=== PATIENT | male | born 1975 | race African-American/Black ===

== ENCOUNTER 2020-12-26 18:42 | Emergency (ER) | payer MEDICAID ==
[~2020-12-26] VITALS: Ht 167.6 cm; Wt 84.4 kg
[~2020-12-26 18:42] MED LIST: ATIV1TAB7 PO; FOLI1TAB11 PO; HYDR-2541 PO; HYDR-3363 PO; LISI20TA33 PO; VITA100T60 PO
[2020-12-26] MEDS ORDERED: LANTINJ4 SC ×2 (18:50→21:31)
[2020-12-26] MEDS ORDERED: INSURSDRX SC (18:50)
[2020-12-26 20:53] LABS: HEMATOCRIT 37.3 % (42.0-52.0); HEMOGLOBIN 11.8 g/dl (13.5-17.5); MEAN CORPUSCULAR HEMOGLOBIN 25.9 pg (27.0-33.0); MEAN CORPUSCULAR HGB CONC 31.6 g/dl (32.0-36.5); PLATELET COUNT, AUTOMATED 207 10^3/uL (150-450); RED BLOOD COUNT 4.55 10^6/uL (4.30-6.10); WHITE BLOOD COUNT 11.8 10^3/uL (4.0-10.0)
[2020-12-26 21:15] LABS: BASOPHILS 1 % (0-1); LYMPHOCYTES 33 % (16-44); MONOCYTES 10 % (0-5); NEUTROPHILS 56 % (28-66); PLATELET ESTIMATE NORMAL (NORMAL)
[2020-12-26 21:18] LABS: BLOOD UREA NITROGEN 11 MG/DL (7-18); CARBON DIOXIDE LEVEL 27 MEQ/L (21-32); CHLORIDE LEVEL 112 MEQ/L (98-107); CREATININE FOR GFR 1.12 MG/DL (0.70-1.30); GLOMERULAR FILTRATION RATE > 60.0 (>60); GLUCOSE, FASTING 235 MG/DL (70-100); POTASSIUM SERUM 4.4 MEQ/L (3.5-5.1); SODIUM LEVEL 144 MEQ/L (136-145)
[2020-12-26] MEDS ORDERED: lisinopriL 40 MG TAB PO ONE (21:25)
[2020-12-26] MEDS ORDERED: metFORMIN (GLUCOPHAGE) 500MG TAB PO ONE (21:25)
[2020-12-26] MEDS ORDERED: LEVEMIR (INSULIN DETEMIR) 1 UNITS/0.01ML SC ONE (21:25)
[2020-12-26] MEDS ORDERED: METF500T13 PO ×2 (21:27→21:32)
[2020-12-26] MEDS ORDERED: ZOLO100T PO (21:27)
[2020-12-26] MEDS ORDERED: LISI40TA4 PO ×2 (21:27→21:30)
[2020-12-26] MEDS ORDERED: REST15CA PO (21:27)
[2020-12-26] MEDS ORDERED: AMLO10TA PO (21:30)
[2020-12-26 21:45] VITALS: BP 157/94
[2020-12-26 21:51] VITALS: BP 157/94
[2020-12-30] MEDS ORDERED: glucometer (10:27)
[2020-12-30] MEDS ORDERED: test strip (10:27)
[2020-12-30] MEDS ORDERED: ALCO1MED31 TP (10:29)
[2020-12-30] MEDS ORDERED: lancets (10:29)
[2020-12-30] MEDS ORDERED: [UNRECOGNIZED DRUG - SUPPLY] (10:36)
== END 2020-12-26 21:58 | disposition home or self-care (01) ==
LOC: M ED 18:42
DX: Z76.0 Encounter for issue of repeat prescription (principal); E11.9 Type 2 diabetes mellitus without complications; I10 Essential (primary) hypertension; F33.9 Major depressive disorder, recurrent, unspecified; F41.9 Anxiety disorder, unspecified; R01.1 Cardiac murmur, unspecified; Z79.899 Other long term (current) drug therapy; Z79.4 Long term (current) use of insulin

== ENCOUNTER → 2021-05-21 | Outpatient (CLI) | payer MEDICAID, OTHER ==
[~2021-05-21] MED LIST changes: +ALCO1MED31 TP; +AMLO10TA PO; +INSURSDRX SC; +LANTINJ4 SC; +LISI40TA4 PO; +METF500T13 PO; +REST15CA PO; +ZOLO100T PO; +[UNRECOGNIZED DRUG - SUPPLY]; +glucometer; +lancets; +test strip
--- NOTE | 2021-05-21 10:03 | REP ---
INDICATION: RUQ ABD PAIN COMPARISON: CT dated 12/25/2015 TECHNIQUE: Real time B-mode riojas scale ultrasound examination using curved array transducer. FINDINGS: Liver demonstrates fatty infiltration without focal hepatic lesions identified. Spleen appears small but otherwise normal and without focal splenic lesion identified. Pancreas is incompletely evaluated due to interposed bowel gas but visualized portions appear normal. Gallbladder is normal without gallstones, wall thickening, or pericholecystic fluid. No biliary ductal dilatation is appreciated and the common bile duct measures 3.0 mm in diameter. The bilateral kidneys are normal in reniform shape without hydronephrosis or obvious abnormality. Right kidney measures 10.2 x 5.0 x 4.8 cm. Left kidney measures 10.0 x 5.2 x 5.6 cm. Abdominal aorta measures 2.1 cm maximal diameter. No ascites. IMPRESSION: Hepatosteatosis. Otherwise normal complete abdominal ultrasound. <Electronically signed by Capo Sparks > 05/21/21 1000
== END ==
LOC: M RAD 08:04
PROVIDERS: ATTEND Pediatrics
DX: K76.0 Fatty (change of) liver, not elsewhere classified (principal); R10.11 Right upper quadrant pain

== ENCOUNTER 2021-08-06 08:31 | Emergency (ER) | payer OTHER ==
[~2021-08-06] VITALS: Ht 167.6 cm; Wt 71.5 kg
[2021-08-06] MEDS ORDERED: FAMOTIDINE INJ 20MG/2ML VIAL (S0028 PER 1) IVP ONE (09:15)
[2021-08-06] MEDS ORDERED: diphenhydrAMINE 50MG/ML VIAL (J1200) IV ONE (09:15)
[2021-08-06] MEDS ORDERED: methylPREDNISolone 125MG 2ML VIAL IV ONE (09:15)
[2021-08-06] MEDS ORDERED: HALOPERIDOL 5MG/ML VIAL (J1630 PER 1) IV ONE (10:10)
[2021-08-06] MEDS ORDERED: NS 1,000 ML IV ONE ×2 (11:10→13:00)
[2021-08-06 11:59] LABS: BASO % 0.4 % (0.0-1.0); EOS # 0.1 10^3/uL (0.0-0.5); EOS % 0.7 % (0.0-3.0); HEMATOCRIT 56.3 % (42.0-52.0); HEMOGLOBIN 18.2 g/dl (13.5-17.5); LYMPH # 3.2 10^3/uL (1.5-5.0); LYMPH % 34.4 % (24.0-44.0); MEAN CORPUSCULAR HEMOGLOBIN 27.6 pg (27.0-33.0); MEAN CORPUSCULAR HGB CONC 32.3 g/dl (32.0-36.5); MEAN CORPUSCULAR VOLUME 85.4 fl (80.0-96.0); MONO # 0.9 10^3/uL (0.0-0.8); MONO % 9.5 % (2.0-8.0); NEUTROPHILS % 54.8 % (36.0-66.0); PLATELET COUNT, AUTOMATED 190 10^3/uL (150-450); RED BLOOD COUNT 6.59 10^6/uL (4.30-6.10); WHITE BLOOD COUNT 9.2 10^3/uL (4.0-10.0)
[2021-08-06 12:32] LABS: CALCIUM LEVEL 9.5 MG/DL (8.5-10.1); CREATININE FOR GFR 1.76 MG/DL (0.70-1.30); GLOMERULAR FILTRATION RATE 54.1 (>60); POTASSIUM SERUM 3.9 MEQ/L (3.5-5.1); THYROID STIMULATING HORMONE 4.06 uIU/ML (0.358-3.740)
[2021-08-06 14:00] VITALS: BP 156/93
[2021-08-06 14:01] LABS: AMPHETAMINES LEVEL URINE NEGATIVE (NEGATIVE); BARBITURATES URINE NEGATIVE (NEGATIVE); BENZODIAZEPINES URINE NEGATIVE (NEGATIVE); CANNABINOIDS URINE POSITIVE (NEGATIVE); COCAINE METABOLITE URINE NEGATIVE (NEGATIVE); METHADONE URINE NEGATIVE (NEGATIVE); OPIATES URINE NEGATIVE (NEGATIVE); PHENCYCLIDINE URINE NEGATIVE (NEGATIVE)
[2021-08-06] MEDS ORDERED: AZITHROMYCIN INJ 500 MG, VIAL MATE ADAPTER 1 EACH in NS 250 ML IV ONE (18:15)
[2021-08-06] MEDS ORDERED: cefTRIAXone SOD 1 GM in D5W MINI-BAG PLUS 50 ML IV ONE (18:15)
== END 2021-08-06 15:03 | disposition left against medical advice (07) ==
LOC: M ED 08:31
DX: I10 Essential (primary) hypertension (principal); R06.02 Shortness of breath; E11.9 Type 2 diabetes mellitus without complications; E78.5 Hyperlipidemia, unspecified; Z79.899 Other long term (current) drug therapy; Z79.84 Long term (current) use of oral hypoglycemic drugs; Z79.4 Long term (current) use of insulin; F12.20 Cannabis dependence, uncomplicated
CPT/HCPCS: 80048; 80307; 84443; 85025; 93005; 93041; 94760; 96361; 96374; 96375; 99285; J1200; J1630; J2930